=== PATIENT | female | born 2000 | race Caucasian/White ===

== ENCOUNTER 2023-10-07 15:41 | Emergency (ER) | payer MEDICAID ==
[~2023-10-07] VITALS: Ht 162.5 cm; Wt 99.8 kg
[2023-10-07] MEDS ORDERED: IBUPROFEN600 MG PO (16:49)
[2023-10-07] MEDS ORDERED: AMOX-CLAV 875-1 EACH PO (16:49)
[2023-10-07] MEDS ORDERED: Ketorolac Tromethamine 60 MG/2 ML VIAL IM ONE (16:50)
[2023-10-07] MEDS ORDERED: Amoxicillin/Clavulanate Pota 875 MG TAB PO ONE (16:50)
== END 2023-10-07 19:06 | disposition home or self-care (01) ==
LOC: ED 15:41
DX: J02.9 Acute pharyngitis, unspecified (principal); K03.81 Cracked tooth